=== PATIENT | male | born 1940 ===

== ENCOUNTER 2020-05-08 06:41 | Day surgery (SDC) | payer OTHER | END 2020-05-08 12:40 | disposition home or self-care (01) | LOC: AMB-ENDOS 06:41 | PROVIDERS: ATTEND Surgery | DX: D12.2 Benign neoplasm of ascending colon (principal); D12.4 Benign neoplasm of descending colon; D12.3 Benign neoplasm of transverse colon; K62.7 Radiation proctitis; Z20.89 Contact with and (suspected) exposure to other communicable diseases ==